=== PATIENT | female | born 1965 | race African-American/Black ===

== ENCOUNTER 2021-02-17 09:13 | Day surgery (SDC) | payer OTHER, SELFPAY ==
[~2021-02-17] VITALS: Ht 165.1 cm; Wt 132.4 kg
[2021-02-17] MEDS ORDERED: MIDAZOLAM 5 MG/5 ML VIAL ONE (10:25)
[2021-02-17] MEDS ORDERED: fentaNYL citrate 0.05 MG/ML VIAL ONE (10:25)
[2021-02-17] MEDS: fentaNYL citrate 0.05 MG/ML VIAL IVP ONE (10:30)
[2021-02-17] MEDS: MIDAZOLAM 2 MG/2 ML VIAL IVP ONE (10:31)
[2021-02-17] MEDS: LIDOCAINE 2% 100 MG/5 ML UJET TP ONE (10:31)
[2021-02-17] MEDS ORDERED: SIMETHICONE 40 MG/0.6 ML ONE (10:38)
== END 2021-02-17 11:45 | disposition home or self-care (01) ==
LOC: MMU 09:13 → MDS 09:13
PROVIDERS: ATTEND Internal Medicine Gastroenterology
DX: Z12.11 Encounter for screening for malignant neoplasm of colon (principal); M19.90 Unspecified osteoarthritis, unspecified site; I10 Essential (primary) hypertension; J45.909 Unspecified asthma, uncomplicated; I25.10 Atherosclerotic heart disease of native coronary artery without angina pectoris; Z79.01 Long term (current) use of anticoagulants; Z86.73 Personal history of transient ischemic attack (TIA), and cerebral infarction without residual deficits; Z88.0 Allergy status to penicillin; Z88.1 Allergy status to other antibiotic agents; Z79.02 Long term (current) use of antithrombotics/antiplatelets; Z79.899 Other long term (current) drug therapy; Z96.651 Presence of right artificial knee joint; Z90.710 Acquired absence of both cervix and uterus
CPT/HCPCS: 45378; 87426; J2250; J3010